=== PATIENT | female | born 1955 | race Caucasian/White ===

== ENCOUNTER 2018-11-19 21:24 | Emergency (ER) | payer OTHER ==
[~2018-11-19] VITALS: Ht 165.1 cm; Wt 81.6 kg
[2018-11-19] MEDS ORDERED: TOPROL XL25 MG (21:41)
[2018-11-19] MEDS ORDERED: CLARITIN10 M2 (21:41)
== END 2018-11-20 01:43 | disposition home or self-care (01) ==
LOC: ER 21:24
DX: I16.0 Hypertensive urgency (principal); I10 Essential (primary) hypertension